=== PATIENT | female | born 1940 | race Two or more races ===

== ENCOUNTER 2017-04-29 10:54 | Emergency (ER) | payer OTHER, MEDICARE ==
[2017-04-29 11:24] LABS: ADD MAN DIFF? NO
[2017-04-29 11:29] LABS: AGAP ISTAT 17 mmol/L (6-14); BUN ISTAT 16 mg/dL (8-26); CHLORIDE ISTAT 99 mmol/L (98-110); CREATININE ISTAT 0.5 mg/dL (0.5-1.4); GLUCOSE ISTAT 206 mg/dL (70-99); HEMATOCRIT ISTAT 44 % (36-40); ION CA ISTAT 1.12 mmol/L (1.13-1.32); POTASSIUM ISTAT 3.8 mmol/L (3.5-5.0); SODIUM ISTAT 136 mmol/L (135-145); TOT CO2 ISTAT 25 mmol/L (23-32)
[2017-04-29 11:30] LABS: BASO % 0 % (0-3); EOS # 0.1 x10^3/uL (0.0-0.7); EOS % 1 % (0-3); HEMATOCRIT 42.4 % (36.0-47.0); HEMOGLOBIN 14.3 g/dL (12.0-15.5); LYMPH # 1.4 x10^3/uL (1.0-4.8); LYMPH % 10 % (24-48); MEAN CORPUSCULAR HEMOGLOBIN 29 pg (25-35); MEAN CORPUSCULAR HGB CONC 34 g/dL (31-37); MEAN CORPUSCULAR VOLUME 87 fL (79-100); MONO % 8 % (0-9); NEUT # 10.9 x10^3uL (1.8-7.7); NEUT % 81 % (31-73); PLATELET COUNT 278 x10^3/uL (140-400); RED BLOOD COUNT 4.85 x10^6/uL (3.50-5.40); RED CELL DISTRIBUTION WIDTH 15.4 % (11.5-14.5); WHITE BLOOD COUNT 13.5 x10^3/uL (4.0-11.0)
[2017-04-29] MEDS: fentaNYL PF VIAL 100 MCG/2 ML VIAL IV ×2 (11:44)
[2017-04-29 11:49] LABS: ANION GAP 11 (6-14); BLOOD UREA NITROGEN 16 mg/dL (7-20); BUN/CREATININE RATIO 32 (6-20); CALCIUM 9.3 mg/dL (8.5-10.1); CARBON DIOXIDE 26 mmol/L (21-32); CHLORIDE 97 mmol/L (98-107); CREATININE 0.5 mg/dL (0.6-1.0); GLUCOSE 207 mg/dL (70-99); POTASSIUM 3.9 mmol/L (3.5-5.1); SODIUM 134 mmol/L (136-145)
[2017-04-29 11:55] LABS: ALBUMIN 4.1 g/dL (3.4-5.0); ALBUMIN/GLOBULIN RATIO 1.1 (1.0-1.7); ALK PHOS 85 U/L (46-116); ALT (SGPT) 30 U/L (14-59); AST (SGOT) 19 U/L (15-37); MAGNESIUM 1.6 mg/dL (1.8-2.4); TOTAL BILIRUBIN 0.9 mg/dL (0.2-1.0); TOTAL PROTEIN 7.8 g/dL (6.4-8.2)
[2017-04-29 11:59] LABS: NT-PRO BNP 98 pg/mL (0-449)
[2017-04-29 12:02] LABS: TROPONINI < 0.017 ng/mL (0.000-0.055)
[2017-04-29 12:03] LABS: PROTHROMBIN TIME PATIENT 12.4 SEC (11.7-14.0)
[2017-04-29 12:09] LABS: C-REACTIVE PROTEIN 3.8 mg/L (0-3.3)
[2017-04-29] MEDS: diazePAM 5 MG TABLET PO ×2 (13:14)
[2017-04-29] MEDS: KETOROLAC 30 MG/ML INJ. IV ×2 (13:14)
[2017-04-29 13:57] LABS: LACTIC ACID 1.4 mmol/L (0.4-2.0)
== END 2017-04-29 14:27 | disposition home or self-care (01) ==
LOC: ER 10:54
DX: M06.9 Rheumatoid arthritis, unspecified (principal); J18.9 Pneumonia, unspecified organism; E11.9 Type 2 diabetes mellitus without complications; I10 Essential (primary) hypertension; I25.10 Atherosclerotic heart disease of native coronary artery without angina pectoris
CPT/HCPCS: 36415; 71045; 73030; 80047; 80053; 83605; 83735; 83880; 84484; 85025; 85610; 86140; 87040; 93005; 96365; 96375; 99285-25; J1885; J1956; J3010

== ENCOUNTER → 2018-12-03 | Outpatient (CLI) | payer OTHER ==
[2017-04-29 13:38] VITALS: BP 143/67
[~2018-12-03] MED LIST: ALBU8.5H6 INH; AMLO10TA8 PO; AMLO2.5T2 PO; ASPI-630 PO; ATOR20TA PO; DOCU-109 PO; HYDR-2679 PO; HYDR-2761 PO; HYDR-3164 PO; HYDR12.58 PO; IRBE1TAB PO; IRBE1TAB7 PO; LEVO500T59 PO; LOSA-73 PO; LOSA100T2 PO; MELO15TA23 PO; METO25TA4 PO; MONT4GRA PO; PANT20TA2 PO; PRED20TA PO; SITA1TAB7 PO
--- NOTE | 2018-12-03 13:30 | RAD ---
Indications: Right hip pain. Low back pain. No known injury. 2 VIEW RIGHT HIP STUDY: No acute fracture or dislocation or lytic process is seen. There is mild spurring of the right femoral head without joint space narrowing. IMPRESSION: Mild degenerative spurring. No acute osseous abnormality. THREE-VIEW LUMBAR SPINE SERIES: No compression fracture or discitis or lytic process is seen. Retrolisthesis of L3-4 is evident. No anterolisthesis is seen. There is moderate degenerative endplate spurring throughout the lumbar spine. There is severe degenerative disc space narrowing at L4-5. Generalized osteopenia is seen. IMPRESSION: Degenerative lumbar spondylosis most prominent at L4-5. No acute compression fracture. Electronically signed by: Shaggy Gonsalves MD (12/03/2018 1:27 PM) [facility]
== END | disposition home or self-care (01) ==
LOC: RAD 10:11
PROVIDERS: ATTEND Family Medicine
DX: M47.816 Spondylosis without myelopathy or radiculopathy, lumbar region (principal); M48.061 Spinal stenosis, lumbar region without neurogenic claudication; M85.88 Other specified disorders of bone density and structure, other site; M25.551 Pain in right hip
CPT/HCPCS: 72100; 73502

== ENCOUNTER 2019-05-24 00:07 | Emergency (ER) | payer MEDICARE ==
[~2019-05-24] VITALS: Ht 162.6 cm; Wt 77.0 kg
--- NOTE | 2019-05-24 01:24 | PHYS DOC ---
Past Medical History Past Medical History: CAD, Diabetes-Type II, Hypertension (CALLY MATTHEWS APRN) Past Surgical History: Other Additional Past Surgical Histo: back (CALLY MATTHEWS APRN) Smoking Status: Never Smoker Alcohol Use: None Drug Use: None (CALLY MATTHEWS APRN) Adult General Chief Complaint Chief Complaint: HEADACHE HPI HPI Patient is a 79 year old female who presents with frontal lobe headache that goes down into temples bilaterally since yesterday. She also has bilateral side of neck pain. She states when she moves her head back and forth it makes the pain worse. She denies falling. Denies nausea, vomiting, shortness of air, chest pain, fever, abdominal pain, dizziness, lightheadedness, syncope, visual changes or numbness or tingling, focal weakness. (CALLY MATTHEWS APRN) Review of Systems Review of Systems Musculoskeletal: Neck pain. Denies back pain or joint pain [] Neurologic: headache, photophobia, denies focal weakness or sensory changes [] All other systems were reviewed and found to be within normal limits, except as documented in this note. (CALLY MATTHEWS APRN) Current Medications Current Medications Current Medications Medications (Trade) Dose Ordered Sig/Roberto Carlos Start Time Stop Time Status Last Admin Dose Admin Dexamethasone Sodium Phosphate (Decadron) 10 mg 1X ONCE 05/24/19 03:00 05/24/19 03:01 DC 05/24/19 03:02 10 MG Diphenhydramine HCl (Benadryl) 25 mg 1X ONCE 05/24/19 03:00 05/24/19 03:01 DC 05/24/19 03:02 25 MG Fentanyl Citrate (Fentanyl 2ml Vial) 50 mcg 1X ONCE 05/24/19 01:30 05/24/19 01:31 DC 05/24/19 02:13 50 MCG Metoclopramide HCl (Reglan Vial) 5 mg 1X ONCE 05/24/19 03:00 05/24/19 03:01 DC 05/24/19 03:01 5 MG Orphenadrine Citrate (Norflex) 60 mg 1X ONCE 05/24/19 03:00 05/24/19 03:01 DC 05/24/19 03:02 60 MG (QUINTON ELLER Jr. DO) Allergies Allergies Allergies Coded Allergies Type Severity Reaction Last Updated Verified No Known Drug Allergies 7/24/15 No (QUINTON ELLER Jr. DO) Physical Exam Physical Exam Constitutional: Well developed, well nourished, no acute distress, non-toxic appearance. [] HENT: Normocephalic, atraumatic, bilateral external ears normal, oropharynx moist, no oral exudates, nose normal. [] Eyes: PERRLA, EOMI, conjunctiva normal, no discharge. [] Neck: Normal range of motion, Bilateral sides of neck tenderness, stiff with pain but can look side to side, supple, no stridor. [] Cardiovascular:Heart rate regular rhythm, no murmur [] Lungs & Thorax: Bilateral breath sounds clear to auscultation [] Abdomen: Bowel sounds normal, soft, no tenderness, no masses, no pulsatile masses. [] Skin: Warm, dry, no erythema, no rash. [] Back: No tenderness, no CVA tenderness. [] Extremities: No tenderness, no cyanosis, no clubbing, ROM intact, no edema. [] Neurologic: Alert and oriented X 3, normal motor function, normal sensory function, no focal deficits noted. [] Psychologic: Affect normal, judgement normal, mood normal. [] (CASSIE,CALLY Singh APRN) Current Patient Data Vital Signs Vital Signs Date Time Temp Pulse Resp B/P (MAP) Pulse Ox O2 Delivery O2 Flow Rate FiO2 05/24/19 02:13 18 93 05/24/19 00:10 97.6 87 176/77 (110) Room Air 97.6 (QUINTON ELLER Jr. DO) Lab Values Laboratory Tests Test 05/24/19 02:05 05/24/19 02:10 Urine Collection Type Unknown Urine Color Yellow Urine Clarity Clear Urine pH 7.0 Urine Specific [place] 1.010 Urine Protein Negative mg/dL (NEG-TRACE) Urine Glucose (UA) Negative mg/dL (NEG) Urine Ketones (Stick) Trace mg/dL (NEG) Urine Blood Negative (NEG) Urine Nitrite Negative (NEG) Urine Bilirubin Negative (NEG) Urine Urobilinogen Dipstick 0.2 mg/dL (0.2 mg/dL) Urine Leukocyte Esterase Trace (NEG) Urine RBC Occ /HPF (0-2) Urine WBC 1-4 /HPF (0-4) Urine Squamous Epithelial Cells Few /LPF Urine Bacteria Few /HPF (0-FEW) Urine Mucus Slight /LPF Influenza Type A Antigen Negative (NEGATIVE) Influenza Type B Antigen Negative (NEGATIVE) White Blood Count 9.9 x10^3/uL (4.0-11.0) Red Blood Count 4.60 x10^6/uL (3.50-5.40) Hemoglobin 13.8 g/dL (12.0-15.5) Hematocrit 40.5 % (36.0-47.0) Mean Corpuscular Volume 88 fL (79-100) Mean Corpuscular Hemoglobin 30 pg (25-35) Mean Corpuscular Hemoglobin Concent 34 g/dL (31-37) Red Cell Distribution Width 15.9 % (11.5-14.5) H Platelet Count 259 x10^3/uL (140-400) Neutrophils (%) (Auto) 75 % (31-73) H Lymphocytes (%) (Auto) 13 % (24-48) L Monocytes (%) (Auto) 10 % (0-9) H Eosinophils (%) (Auto) 2 % (0-3) Basophils (%) (Auto) 0 % (0-3) Neutrophils # (Auto) 7.4 x10^3/uL (1.8-7.7) Lymphocytes # (Auto) 1.3 x10^3/uL (1.0-4.8) Monocytes # (Auto) 0.9 x10^3/uL (0.0-1.1) Eosinophils # (Auto) 0.2 x10^3/uL (0.0-0.7) Basophils # (Auto) 0.0 x10^3/uL (0.0-0.2) Prothrombin Time 12.3 SEC (11.7-14.0) Prothrombin Time INR 1.0 (0.8-1.1) Sodium Level 139 mmol/L (136-145) Potassium Level 4.1 mmol/L (3.5-5.1) Chloride Level 101 mmol/L (98-107) Carbon Dioxide Level 26 mmol/L (21-32) Anion Gap 12 (6-14) Blood Urea Nitrogen 14 mg/dL (7-20) Creatinine 0.6 mg/dL (0.6-1.0) Estimated GFR (Cockcroft-Gault) 96.4 BUN/Creatinine Ratio 23 (6-20) H Glucose Level 207 mg/dL (70-99) H Calcium Level 9.6 mg/dL (8.5-10.1) Total Bilirubin 0.8 mg/dL (0.2-1.0) Aspartate Amino Transferase (AST) 14 U/L (15-37) L Alanine Aminotransferase (ALT) 24 U/L (14-59) Alkaline Phosphatase 86 U/L (46-116) Troponin I Quantitative < 0.017 ng/mL (0.000-0.055) Total Protein 7.3 g/dL (6.4-8.2) Albumin 3.8 g/dL (3.4-5.0) Albumin/Globulin Ratio 1.1 (1.0-1.7) Laboratory Tests 05/24/19 02:10 Laboratory Tests 05/24/19 02:10 (QUINTON ELLER Jr., DO) EKG EKG [] (CALLY MATTHEWS APRN) Radiology/Procedures Radiology/Procedures [] (CALLY MATTHEWS APRN) Impressions: PROCEDURE: CT HEAD WO CONTRAST CT CERVICAL SPINE WO CONTRAST, CT HEAD WO CONTRAST History: Headache. Neck pain. Comparison: None. Technique: Noncontrast CT imaging was performed of the head and cervical spine. Coronal and sagittal reconstructions were performed. Exposure: One or more of the following individualized dose reduction techniques were utilized for this examination: 1. Automated exposure control 2. Adjustment of the mA and/or kV according to patient size 3. Use of iterative reconstruction technique. Findings: Head CT: No intracranial hemorrhage. No mass effect. No hydrocephalus. Mild brain parenchymal volume loss. Mild foci of decreased aeration within the hemispheric white matter, most often due to chronic microvascular ischemia. Imaged orbits are unremarkable. Imaged paranasal sinuses and mastoid air cells are clear. No acute calvarial fracture. Cervical spine CT: Straightening of the normal cervical lordosis. Normal vertebral body height. No fracture. Multilevel degenerative disc changes most prominent and C5-C6. Mild facet arthropathy. No high-grade canal or neuroforaminal narrowing. C1-C2 contour calcinosis. Soft tissues unremarkable. Impression: Head CT: 1. No acute intracranial abnormality. Cervical spine CT: 1. No acute fracture or subluxation of the cervical spine. 2. Mild multilevel cervical spondylosis. Electronically signed by: Esdras Michele DO (05/24/2019 2:00 AM) [id number] DICTATED and SIGNED BY: ESDRAS MICHELE DO DATE: 05/24/19 0200 (QUINTON ELLER Jr., DO) Course & Med Decision Making Course & Med Decision Making Pertinent Labs and Imaging studies reviewed. (See chart for details) Alert and oriented. Ambulatory with a steady gait. Patient moves all extremities equally with equal strength. Lungs are clear to auscultation in all lobes. PERRLA. Speaks in full clear sentences. Answers all my questions appropriately. Follows all commands appropriately. She has a history of hypertension, CAD, diabetes. Patient states she took her blood pressure medication at 2100 tonight. She states that she took aspirin to help with pain. Patient states the pain is sharp and rates it a 10 out of 10. 0129: Patient is handed off to Dr. Eller at this time. [] (CALLY MATTHEWS APRN) Course & Med Decision Making Patient reevaluated at 2:30 AM and patient was dosed with additional medication. Patient reevaluated again at 3:30 AM and reports almost complete resolution of symptoms. Patient would like to be discharged home at this time. (QUINTON ELLER Jr., DO) Dragon Disclaimer Dragon Disclaimer This electronic medical record was generated, in whole or in part, using a voice recognition dictation system. (CALLY MATTHEWS APRN) Departure Departure Impression: Primary Impression: Acute headache Additional Impression: Neck pain, bilateral Disposition: 01 HOME, SELF-CARE Condition: STABLE Referrals: MARIUM MCGHEE MD (PCP) Patient Instructions: Migraine Headache, Torticollis, Acute Problem Qualifiers Primary Impression: Acute headache Headache type: unspecified Intractability: not intractable Qualified Codes: R51 - Headache CALLY MATTHEWS APRN May 24, 2019 01:24 QUINTON ELLER Jr., DO May 24, 2019 03:53
[2019-05-24] MEDS ORDERED: fentaNYL PF VIAL 100 MCG/2 ML VIAL IVP ONE (01:30)
--- NOTE | 2019-05-24 02:03 | RAD ---
CT CERVICAL SPINE WO CONTRAST, CT HEAD WO CONTRAST History: Headache. Neck pain. Comparison: None. Technique: Noncontrast CT imaging was performed of the head and cervical spine. Coronal and sagittal reconstructions were performed. Exposure: One or more of the following individualized dose reduction techniques were utilized for this examination: 1. Automated exposure control 2. Adjustment of the mA and/or kV according to patient size 3. Use of iterative reconstruction technique. Findings: Head CT: No intracranial hemorrhage. No mass effect. No hydrocephalus. Mild brain parenchymal volume loss. Mild foci of decreased aeration within the hemispheric white matter, most often due to chronic microvascular ischemia. Imaged orbits are unremarkable. Imaged paranasal sinuses and mastoid air cells are clear. No acute calvarial fracture. Cervical spine CT: Straightening of the normal cervical lordosis. Normal vertebral body height. No fracture. Multilevel degenerative disc changes most prominent and C5-C6. Mild facet arthropathy. No high-grade canal or neuroforaminal narrowing. C1-C2 contour calcinosis. Soft tissues unremarkable. Impression: Head CT: 1. No acute intracranial abnormality. Cervical spine CT: 1. No acute fracture or subluxation of the cervical spine. 2. Mild multilevel cervical spondylosis. Electronically signed by: Esdras Michele DO (05/24/2019 2:00 AM) [id number]
[2019-05-24 02:23] LABS: BILIRUBIN,URINE NEGATIVE (NEG); CLARITY,URINE CLEAR; COLOR,URINE YELLOW; NITRITE,URINE NEGATIVE (NEG); PROTEIN,URINE NEGATIVE (NEG-TRACE); UROBILINOGEN,URINE 0.2 mg/dL (0.2 mg/dL)
[2019-05-24 02:25] LABS: BASO % 0 % (0-3); CALCIUM 9.6 mg/dL (8.5-10.1); CREATININE 0.6 mg/dL (0.6-1.0); EOS # 0.2 x10^3/uL (0.0-0.7); EOS % 2 % (0-3); GFR 96.4; HEMATOCRIT 40.5 % (36.0-47.0); HEMOGLOBIN 13.8 g/dL (12.0-15.5); LYMPH # 1.3 x10^3/uL (1.0-4.8); LYMPH % 13 % (24-48); MEAN CORPUSCULAR HEMOGLOBIN 30 pg (25-35); MEAN CORPUSCULAR HGB CONC 34 g/dL (31-37); MEAN CORPUSCULAR VOLUME 88 fL (79-100); MONO # 0.9 x10^3/uL (0.0-1.1); MONO % 10 % (0-9); NEUT # 7.4 x10^3/uL (1.8-7.7); NEUT % 75 % (31-73); PLATELET COUNT 259 x10^3/uL (140-400); POTASSIUM 4.1 mmol/L (3.5-5.1); RED CELL DISTRIBUTION WIDTH 15.9 % (11.5-14.5); WHITE BLOOD COUNT 9.9 x10^3/uL (4.0-11.0)
[2019-05-24 02:26] LABS: PROTHROMBIN TIME PATIENT 12.3 SEC (11.7-14.0)
[2019-05-24 02:29] LABS: BACTERIA,URINE FEW /HPF (0-FEW); RBC,URINE OCC /HPF (0-2); SQUAMOUS EPITHELIAL CELL,UR FEW /LPF
[2019-05-24 02:31] LABS: ALBUMIN 3.8 g/dL (3.4-5.0); ALBUMIN/GLOBULIN RATIO 1.1 (1.0-1.7); TOTAL BILIRUBIN 0.8 mg/dL (0.2-1.0); TOTAL PROTEIN 7.3 g/dL (6.4-8.2)
[2019-05-24 02:36] LABS: INFLUENZA A PATIENT NEGATIVE (NEGATIVE); INFLUENZA B PATIENT NEGATIVE (NEGATIVE)
--- NOTE | 2019-05-24 02:52 | RAD ---
PORTABLE CHEST 1V History: Hypertension Comparison: April 29, 2017 Findings: No consolidation or pleural effusion. Normal heart size. No pneumothorax. Elevation of the right hemidiaphragm, unchanged. Left shoulder arthroplasty. Right glenohumeral and acromioclavicular DJD. Impression: 1. No acute cardiopulmonary process. Electronically signed by: Esdras Michele DO (05/24/2019 2:49 AM) [id number]
[2019-05-24] MEDS ORDERED: ORPHENADRINE CITRATE 60 MG/2 ML VIAL. IV ONE (03:00)
[2019-05-24] MEDS ORDERED: METOCLOPRAMIDE HCL 10 MG/2 ML VIAL. IVP ONE (03:00)
[2019-05-24] MEDS ORDERED: DEXAMETHASONE SOD PHOS 20 MG/5 ML VIAL. IV ONE (03:00)
[2019-05-24] MEDS ORDERED: diphenhydrAMINE 50 MG/ML VIAL IVP ONE (03:00)
--- NOTE | 2019-05-24 03:18 | EKG ---
[facility] [address] [place] [address] Test Date: 2019-05-24 Test Time: 02:32:00 Pat Name: CHIQUITA MAYSODepartment: Room: Gender: F Grocery Clerk Selling: : 1940 Requested By: CALLY MATTHEWS Order Number: [id number] Reading MD: Measurements Intervals [place] Rate: 88 P: -7 NC: 160 QRS: -16 QRSD: 132 T: 16 QT: 394 QTc: 480 Interpretive Statements SINUS RHYTHM LEFTWARD AXIS RIGHT BUNDLE BRANCH BLOCK ABNORMAL ECG RI6.01 No previous ECG available for comparison
[2019-05-24] MEDS ORDERED: CONTRAST GIVEN. MC PRN (04:30)
[2019-05-24] MEDS ORDERED: SUMAtriptan SUCC 6 MG/0.5 ML VIAL. SQ ONE (04:30)
[2019-05-24] MEDS ORDERED: HYDROmorphone 2 MG/ML VIAL IV ONE (04:30)
[2019-05-24] MEDS ORDERED: IOHEXOL 300 MG/ML 100ML VIAL. IV ONE (05:00)
--- NOTE | 2019-05-24 05:25 | RAD ---
CT ANGIOGRAPHY HEAD AND NECK History: Headache. Technique: After bolus of intravenous contrast, volumetric CT data acquisition was acquired of the head and neck. Multiplanar reconstruction images to include MIP and 3-D reconstruction images are submitted. Exposure: One or more of the following individualized dose reduction techniques were utilized for this examination: 1. Automated exposure control 2. Adjustment of the mA and/or kV according to patient size 3. Use of iterative reconstruction technique. Comparison: None Any determination of stenosis is based on NASCET criteria. Head CTA: ICA: Bilateral carotid siphon atheromatous calcifications. Mild bilateral supraclinoid internal carotid artery narrowings, left greater than right. MCA: No stenosis, occlusion or aneurysm. IBAN: No stenosis, occlusion or aneurysm. Patent anterior communicating artery. RECEPTIONIST NURSE: No stenosis, occlusion or aneurysm. Patent right posterior communicating artery. Basilar artery: No stenosis, occlusion or aneurysm. Distal vertebral arteries: No stenosis, occlusion or aneurysm. Minimal scattered paranasal sinus mucosal thickening. Mastoid air cells are clear. CT angiogram neck: Aortic arch: Mild atheromatous desiccation within the aortic arch and branch vessels. Common carotid arteries: No stenosis, occlusion or dissection. Mild right carotid bulb atheromatous calcification. Internal carotid arteries: No stenosis, occlusion or dissection. External carotid arteries: Patent Vertebral arteries: No stenosis, occlusion or dissection. Imaged lung apices are unremarkable. Left thyroid nodule measures 1.4 cm. Bones: No pathologic osseous lesions. Impression: 1. No high-grade arterial stenosis, dissection, aneurysm or occlusion within the head or neck. 2. Mild atheromatous disease within the head and neck. 3. Mild bilateral supraclinoid internal carotid artery narrowing, left greater than right. 4. Left thyroid nodule. Electronically signed by: Esdras Michele DO (05/24/2019 5:22 AM) [id number]
[2019-05-24 06:24] VITALS: BP 170/89
== END 2019-05-24 06:25 | disposition home or self-care (01) ==
LOC: ER 00:07
DX: R51 Headache (principal); M54.2 Cervicalgia; E04.1 Nontoxic single thyroid nodule; M47.812 Spondylosis without myelopathy or radiculopathy, cervical region; I10 Essential (primary) hypertension; E11.9 Type 2 diabetes mellitus without complications; I25.10 Atherosclerotic heart disease of native coronary artery without angina pectoris
CPT/HCPCS: 36415; 70450; 70496; 70498; 71045; 72125; 80053; 81001; 84484; 85025; 85610; 87086; 87804; 93005; 96372; 96374; 96375; 99285; J1100; J1170; J1200; J2360; J2765; J3010; J3030; Q9967

== ENCOUNTER → 2019-08-11 | Outpatient (CLI) | payer MEDICARE ==
[2017-04-29 13:38] VITALS: BP 143/67
--- NOTE | 2019-08-11 14:35 | RAD ---
VENOUS LOWER EXTREMITY RIGHT 08/11/2019 1:00 PM Clinical Information: Pain in the right lower extremity. Comparison: None. Technique: Multiple grayscale, color Doppler, and spectral Doppler sonographic images of the lower extremity venous structures were obtained. Findings: The right common femoral, femoral, and popliteal veins exhibit normal compression, respiratory phasicity, and augmentation. No intraluminal thrombi are identified. Color Doppler flow is demonstrated in the right posterior tibial veins. Greater saphenous veins are patent at the saphenofemoral junction. Impression: 1. No evidence of deep venous thrombosis. Electronically signed by: Meghann Monterroso MD (08/11/2019 2:32 PM) [id number]
== END | disposition home or self-care (01) ==
LOC: US 10:48
PROVIDERS: ATTEND Family Medicine
DX: M79.604 Pain in right leg (principal); R22.41 Localized swelling, mass and lump, right lower limb
CPT/HCPCS: 93971

== ENCOUNTER → 2020-12-02 | Outpatient (CLI) | payer MEDICARE ==
[2017-04-29 13:38] VITALS: BP 143/67
[~2020-12-02] MED LIST changes: +AMLO-187 PO; -AMLO10TA8 PO
--- NOTE | 2020-12-02 14:07 | RAD ---
EXAMINATION: US BILATERAL LOWEREXTREMITY VENOUS DOPPLER (LOWER EXTREMITY VENOUS ULTRASOUND) CLINICAL HISTORY: Bilateral lower extremity pain and swelling TECHNIQUE: Sonographic grayscale images obtained of the bilateral lower extremity deep venous systems with color flow Doppler, compression, and augmentation techniques as indicated. Images obtained and stored in a permanent archive. COMPARISON: None FINDINGS: RIGHT: No evidence of absent flow or incompressibility within the common femoral vein, femoral vein, or popl iteal vein. Visualized calf veins appear patent on limited evaluation. LEFT: No evidence of absent flow or incompressibility within the common femoral vein, femoral vein, or popl iteal vein. Visualized calf veins appear patent on limited evaluation. IMPRESSION: No evidence of bilateral lower extremity DVT. Electronically signed by: Reji Carpenter DO (12/02/2020 2:04 PM) [facility]
== END ==
LOC: US 13:02
PROVIDERS: ATTEND Family Medicine
DX: I10 Essential (primary) hypertension (principal)
CPT/HCPCS: 93970